=== PATIENT | female | born 1990 | race Caucasian/White ===

== ENCOUNTER 2021-02-11 23:49 | Emergency (ER) | payer MEDICAID ==
[~2021-02-11] VITALS: Ht 152.4 cm; Wt 72.6 kg
[2021-02-12] MEDS ORDERED: LORazepam 0.5 MG TAB PO ONE (00:15)
[2021-02-12 01:21] LABS: Basophils # (auto) 0 10 ^3/uL (0-0.2); Basophils % (auto) 0.2 % (0.0-2.0); Eosinophils # (auto) 0.2 10 ^3/uL (0-0.8); Eosinophils % (auto) 1.9 % (0.0-7.0); Hemoglobin 11.9 g/dL (12.2-16.2); Lymphocytes # (auto) 2.3 10 ^3/uL (0.4-5.4); Lymphocytes % (auto) 18.6 % (10.0-50.0); Mean Corpuscular Hemoglobin 28.5 pg (28.0-32.0); Mean Corpuscular Hgb Conc. 32.1 g/dL (32.0-36.0); Mean Corpuscular Volume 88.7 fL (80.0-100.0); Monocytes # (auto) 0.5 10 ^3/uL (0-1.3); Monocytes % (auto) 4.3 % (0.0-12.0); Neutrophils # (auto) 9.4 10 ^3/uL (1.6-8.6); Red Blood Cells 4.17 10^6/uL (4.0-5.20); Red Cell Distribution Width 14.4 % (11.8-14.3); White Blood Cell 12.5 10^3/uL (4.4-10.8)
[2021-02-12 01:27] LABS: Albumin 3.6 g/dL (3.4-5.0); BUN/Creatinine Ratio 19.6; Calcium 8.3 mg/dL (8.5-10.1); Potassium 3.4 mmol/L (3.5-5.1)
[2021-02-12 01:30] LABS: Bilirubin, Total 0.2 mg/dL (0.2-1.0); Total Protein 7.2 g/dL (6.4-8.2)
[2021-02-12 02:21] VITALS: BP 139/97
== END 2021-02-12 02:24 | disposition home or self-care (01) ==
LOC: ER 23:49
DX: J06.9 Acute upper respiratory infection, unspecified (principal); F41.9 Anxiety disorder, unspecified; Z20.822 Contact with and (suspected) exposure to COVID-19
CPT/HCPCS: 36415; 71045; 80053; 85025; 87426; 93005

== ENCOUNTER 2021-02-19 18:39 | Emergency (ER) | payer MEDICAID ==
[~2021-02-19] VITALS: Ht 152.4 cm; Wt 70.3 kg
[2021-02-19 21:30] VITALS: BP 143/89
[2021-02-19] MEDS ORDERED: KETOROLAC TROMETH 60MG/2ML VIAL IM ONE (22:00)
== END 2021-02-20 01:04 | disposition home or self-care (01) ==
LOC: ER 18:40
DX: S33.5XXA Sprain of ligaments of lumbar spine, initial encounter (principal); M54.41 Lumbago with sciatica, right side; M62.830 Muscle spasm of back; E66.9 Obesity, unspecified; Z68.30 Body mass index [BMI] 30.0-30.9, adult; X50.1XXA Overexertion from prolonged static or awkward postures, initial encounter; Y93.89 Activity, other specified; Y92.89 Other specified places as the place of occurrence of the external cause; Y99.8 Other external cause status
CPT/HCPCS: 72100; 96372; 99283; J1885

== ENCOUNTER 2021-03-15 11:25 | Emergency (ER) | payer MEDICAID ==
[~2021-03-15] VITALS: Ht 152.4 cm; Wt 70.3 kg
[2021-03-15 11:26] VITALS: BP 161/103
== END 2021-03-15 13:55 | disposition home or self-care (01) ==
LOC: ER 11:25
DX: K02.9 Dental caries, unspecified (principal)

== ENCOUNTER 2021-03-17 10:54 | Emergency (ER) | payer MEDICAID ==
[~2021-03-17] VITALS: Ht 154.9 cm; Wt 70.3 kg
[2021-03-17 12:46] VITALS: BP 133/92
== END 2021-03-17 13:46 | disposition home or self-care (01) ==
LOC: ER 10:54
DX: R51.9 Headache, unspecified (principal); G93.2 Benign intracranial hypertension
CPT/HCPCS: 70450

== ENCOUNTER 2021-04-12 09:13 | Emergency (ER) | payer MEDICAID ==
[~2021-04-12] VITALS: Ht 152.4 cm; Wt 70.3 kg
[2021-04-12 10:10] LABS: Urine Bacteria FEW /hpf (None Seen); Urine Blood Negative /uL (Negative); Urine Specific Gravity 1.006 (1.001-1.035); Urine WBC 1 /hpf (0 - 5)
[2021-04-12 10:43] LABS: Basophils # (auto) 0 10 ^3/uL (0-0.2); Basophils % (auto) 0.4 % (0.0-2.0); Eosinophils # (auto) 0.1 10 ^3/uL (0-0.8); Hematocrit 41.6 % (36.0-46.0); Hemoglobin 13.4 g/dL (12.2-16.2); Lymphocytes # (auto) 1.2 10 ^3/uL (0.4-5.4); Lymphocytes % (auto) 9.7 % (10.0-50.0); Mean Corpuscular Hgb Conc. 32.1 g/dL (32.0-36.0); Mean Corpuscular Volume 87.3 fL (80.0-100.0); Monocytes # (auto) 0.5 10 ^3/uL (0-1.3); Monocytes % (auto) 3.5 % (0.0-12.0); Neutrophils # (auto) 10.9 10 ^3/uL (1.6-8.6); Neutrophils % (auto) 85.4 % (37.0-80.0); Red Blood Cells 4.77 10^6/uL (4.0-5.20); Red Cell Distribution Width 14.8 % (11.8-14.3); White Blood Cell 12.8 10^3/uL (4.4-10.8)
[2021-04-12 10:55] LABS: Albumin 4.1 g/dL (3.4-5.0); Calcium 8.7 mg/dL (8.5-10.1); Potassium 3.6 mmol/L (3.5-5.1)
[2021-04-12 10:58] LABS: BUN/Creatinine Ratio 16.9; Bilirubin, Total 0.2 mg/dL (0.2-1.0); Total Protein 8.4 g/dL (6.4-8.2)
[2021-04-12] MEDS ORDERED: HYDROcodone-ACET 10/325MG TAB PO ONE (12:00)
[2021-04-12 16:06] VITALS: BP 142/80
== END 2021-04-12 16:42 | disposition left against medical advice (07) ==
LOC: ER 09:13
DX: K80.20 Calculus of gallbladder without cholecystitis without obstruction (principal)
CPT/HCPCS: 36415; 74176; 80053; 81001; 83690; 84702; 85025

== ENCOUNTER 2021-04-17 19:36 | Emergency (ER) | payer MEDICAID ==
[~2021-04-17] VITALS: Ht 152.4 cm; Wt 70.3 kg
[2021-04-17 19:37] VITALS: BP 157/68
[2021-04-17 20:18] LABS: Urine Bacteria FEW /hpf (None Seen); Urine Blood 2+ /uL (Negative); Urine Mucus FEW (None Seen); Urine Specific Gravity 1.017 (1.001-1.035); Urine WBC 11 /hpf (0 - 5)
[2021-04-17] MEDS ORDERED: FLUCONAZOLE 100 MG TAB PO ONE (22:30)
[2021-04-17] MEDS ORDERED: cefTRIAXone SOD 1,000 MG VL IM ONE (22:30)
== END 2021-04-17 22:56 | disposition home or self-care (01) ==
LOC: ER 19:36
DX: B37.3 Candidiasis of vulva and vagina (principal); N39.0 Urinary tract infection, site not specified; N76.0 Acute vaginitis; E66.9 Obesity, unspecified; Z68.30 Body mass index [BMI] 30.0-30.9, adult
CPT/HCPCS: 81001; 81025; 96372; 99283; J0696

== ENCOUNTER 2021-11-23 20:48 | Emergency (ER) | payer MEDICAID ==
[~2021-11-23] VITALS: Ht 152.4 cm; Wt 75.0 kg
[2021-11-23 22:44] VITALS: BP 156/81
[2021-11-23 22:45] LABS: Urine WBC None Seen /hpf (0 - 5)
[2021-11-23] MEDS ORDERED: NITR-87 PO (23:05)
[2021-11-23 23:14] LABS: Urine Amorphous Crystal MOD /hpf (None Seen); Urine Bacteria NONE SEEN /hpf (None Seen); Urine Blood Negative /uL (Negative); Urine Specific Gravity 1.033 (1.001-1.035)
== END 2021-11-23 23:33 | disposition home or self-care (01) ==
LOC: ER 20:48
DX: N39.0 Urinary tract infection, site not specified (principal)
CPT/HCPCS: 81001

== ENCOUNTER 2021-11-29 07:30 | Emergency (ER) | payer MEDICAID ==
[~2021-11-29] VITALS: Ht 152.4 cm; Wt 74.5 kg
[~2021-11-29 07:30] MED LIST: NITR-87 PO
[2021-11-29 07:59] VITALS: BP 140/92
[2021-11-29 08:24] LABS: Urine Bacteria FEW /hpf (None Seen); Urine Blood Negative /uL (Negative); Urine Mucus FEW (None Seen); Urine Specific Gravity 1.017 (1.001-1.035); Urine WBC 4 /hpf (0 - 5)
[2021-11-29 08:31] LABS: Basophils # (auto) 0.1 10 ^3/uL (0-0.2); Basophils % (auto) 0.6 % (0.0-2.0); Eosinophils # (auto) 0.1 10 ^3/uL (0-0.8); Eosinophils % (auto) 1.3 % (0.0-7.0); Hematocrit 37.6 % (36.0-46.0); Hemoglobin 12.1 g/dL (12.2-16.2); Lymphocytes # (auto) 1.5 10 ^3/uL (0.4-5.4); Lymphocytes % (auto) 15.5 % (10.0-50.0); Mean Corpuscular Hemoglobin 27.8 pg (28.0-32.0); Mean Corpuscular Hgb Conc. 32.1 g/dL (32.0-36.0); Mean Corpuscular Volume 86.8 fL (80.0-100.0); Monocytes # (auto) 0.5 10 ^3/uL (0-1.3); Monocytes % (auto) 5.2 % (0.0-12.0); Neutrophils # (auto) 7.7 10 ^3/uL (1.6-8.6); Neutrophils % (auto) 77.4 % (37.0-80.0); Nucleated Red Blood Cells % 0.1 %; Red Blood Cells 4.33 10^6/uL (4.0-5.20); Red Cell Distribution Width 14.9 % (11.8-14.3); White Blood Cell 9.9 10^3/uL (4.4-10.8)
[2021-11-29 08:49] LABS: Albumin 3.5 g/dL (3.4-5.0); Calcium 8.4 mg/dL (8.5-10.1); Potassium 3.4 mmol/L (3.5-5.1)
[2021-11-29 08:51] LABS: BUN/Creatinine Ratio 17.9; Bilirubin, Total 0.2 mg/dL (0.2-1.0)
[2021-11-29] MEDS ORDERED: KETOROLAC TROMETH 60MG/2ML VIAL IM ONE (09:00)
[2021-11-29] MEDS ORDERED: TRAM-297 PO (09:18)
[2021-11-29] MEDS ORDERED: METO-281 PO (09:18)
== END 2021-11-29 09:54 | disposition home or self-care (01) ==
LOC: ER 07:30
DX: K80.80 Other cholelithiasis without obstruction (principal); Z79.899 Other long term (current) drug therapy
CPT/HCPCS: 36415; 76705; 80053; 81001; 81025; 83690; 85025; 96372; 99284; J1885

== ENCOUNTER 2021-12-02 07:16 | Emergency (ER) | payer MEDICAID ==
[~2021-12-02] VITALS: Ht 152.4 cm; Wt 75.8 kg
[~2021-12-02 07:16] MED LIST changes: +METO-281 PO; +TRAM-297 PO
[2021-12-02 08:15] LABS: Basophils # (auto) 0 10 ^3/uL (0-0.2); Basophils % (auto) 0.3 % (0.0-2.0); Eosinophils # (auto) 0.1 10 ^3/uL (0-0.8); Eosinophils % (auto) 1.1 % (0.0-7.0); Hematocrit 36.6 % (36.0-46.0); Hemoglobin 11.5 g/dL (12.2-16.2); Lymphocytes # (auto) 1.4 10 ^3/uL (0.4-5.4); Lymphocytes % (auto) 16.8 % (10.0-50.0); Mean Corpuscular Hemoglobin 27.7 pg (28.0-32.0); Mean Corpuscular Hgb Conc. 31.5 g/dL (32.0-36.0); Monocytes # (auto) 0.4 10 ^3/uL (0-1.3); Monocytes % (auto) 4.4 % (0.0-12.0); Neutrophils # (auto) 6.3 10 ^3/uL (1.6-8.6); Neutrophils % (auto) 77.4 % (37.0-80.0); Red Blood Cells 4.16 10^6/uL (4.0-5.20); Red Cell Distribution Width 14.7 % (11.8-14.3); White Blood Cell 8.2 10^3/uL (4.4-10.8)
[2021-12-02 08:41] LABS: Urine Bacteria FEW /hpf (None Seen); Urine Blood 3+ /uL (Negative); Urine Specific Gravity 1.003 (1.001-1.035); Urine WBC 1 /hpf (0 - 5)
[2021-12-02 09:04] LABS: Albumin 3.5 g/dL (3.4-5.0); Calcium 8.4 mg/dL (8.5-10.1); Potassium 3.3 mmol/L (3.5-5.1)
[2021-12-02 09:07] LABS: BUN/Creatinine Ratio 13.8; Bilirubin, Total 0.2 mg/dL (0.2-1.0); Total Protein 6.8 g/dL (6.4-8.2)
[2021-12-02] MEDS ORDERED: PANTOPRAZOLE 40 MG TAB PO ONE (11:30)
[2021-12-02] MEDS ORDERED: PROCHLORPERAZINE MALEATE 10 MG TAB PO ONE (11:30)
[2021-12-02 12:44] VITALS: BP 147/83
[2021-12-02] MEDS ORDERED: METH4PAK PO (15:37)
== END 2021-12-02 12:47 | disposition home or self-care (01) ==
LOC: ER 07:16
DX: K80.80 Other cholelithiasis without obstruction (principal); Z79.899 Other long term (current) drug therapy
CPT/HCPCS: 36415; 80053; 81001; 85025; 99283; Q0164

== ENCOUNTER 2021-12-02 15:20 | Emergency (ER) | payer MEDICAID ==
[~2021-12-02] VITALS: Ht 152.4 cm; Wt 75.0 kg
[2021-12-02] MEDS ORDERED: METH4PAK PO (15:37)
[2021-12-02] MEDS ORDERED: diphenhdrAMINE HCL 50 MG/1 ML VL IV ONE (15:45)
[2021-12-02] MEDS ORDERED: methylPREDNISolone SOD SUCC 125 MG/2 ML VL IV ONE (15:45)
[2021-12-02] MEDS ORDERED: SODIUM CHLORIDE 0.9% 1,000 ML IV ONE (15:45)
[2021-12-02 17:15] VITALS: BP 145/86
== END 2021-12-02 17:16 | disposition home or self-care (01) ==
LOC: ER 15:20
DX: T78.40XA Allergy, unspecified, initial encounter (principal); Z79.899 Other long term (current) drug therapy; Y92.89 Other specified places as the place of occurrence of the external cause
CPT/HCPCS: 96361; 96374; 96375; 99284; J1200; J2930; J7030